=== PATIENT | male | born 1940 | race Caucasian/White ===

== ENCOUNTER 2024-03-08 15:24 | Emergency (ER) | payer MEDICARE ==
[2024-03-08] MEDS ORDERED: Sodium Chloride 0.9% 10 ML Syringe FLUSH PRN (15:45)
[2024-03-08] MEDS: Sodium Chloride 0.9% 1,000 ML IV ONE (15:59)
[2024-03-08] MEDS: Ondansetron 4 MG/2 ML SDV IVPUSH ONE (15:59)
[2024-03-08] MEDS ORDERED: Ondansetron 4 MG Tab.DIS ONE (16:00)
[2024-03-08] MEDS ORDERED: Pantoprazole 40 MG Tab.CR ONE (16:00)
[2024-03-08 16:18] LABS: BASOPHILS ABSOLUTE AUTO 0.04 K/uL (0.02-0.10); BASOPHILS PERCENT AUTO 0.4 % (0.0-0.5); EOSINOPHILS ABSOLUTE AUTO 0.01 K/uL (0.04-0.40); EOSINOPHILS PERCENT AUTO 0.1 % (1.0-5.0); HEMATOCRIT 39.8 % (40.0-54.0); LYMPHOCYTES PERCENT AUTO 11.2 % (20.0-40.0); MEAN CORPUSCULAR HEMOGLOBIN 30.1 pg (27.0-32.0); MEAN CORPUSCULAR HGB CONC 35.2 g/dL (31.0-35.0); MEAN CORPUSCULAR VOLUME 86 fL (76-96); MONOCYTES ABSOLUTE AUTO 0.72 K/uL (0.20-0.80); MONOCYTES PERCENT AUTO 7.3 % (3.0-10.0); NEUTROPHILS ABSOLUTE AUTO 7.99 K/uL (2.00-7.50); PLATELET COUNT,PLT 307 K/uL (150-400); RED BLOOD CELL COUNT 4.65 M/uL (4.50-6.50); WHITE BLOOD CELL COUNT,WBC 9.9 K/uL (4.0-11.0)
[2024-03-08] MEDS: GI Cocktail Oral Solution 30 ML PO ONE (16:25)
[2024-03-08 16:46] LABS: A/G RATIO 0.8 (0.8-2.0); ALBUMIN 3.7 g/dL (3.4-5.0); ANION GAP 15.7 mmol/L (5.0-15.0); BILIRUBIN TOTAL 0.9 mg/dL (0.0-1.0); BUN/CREATININE RATIO 14.6 (6-25); CALCIUM 9.7 mg/dL (8.5-10.1); CARBON DIOXIDE,CO2 28.3 mmol/L (21.0-32.0); CREATININE 1.57 mg/dL (0.70-1.30); EST CRCL DRUG DOSING (CG) 39.82 mL/min; PROTEIN TOTAL,TP 8.1 g/dL (6.4-8.2)
[2024-03-08] MEDS: Sodium Chloride 0.9% 50 ML SDV FLUSH SCH (16:50)
[2024-03-08] MEDS: Iopamidol 612 MG/ML 100 ML Bottle IV PRN (16:50)
[2024-03-08 17:02] LABS: APPEARANCE,URINE CLOUDY (CLEAR); COLOR,URINE YELLOW; PROTEIN,URINE 100 mg/dL (NEGATIVE)
[2024-03-08 17:03] LABS: BILIRUBIN,URINE SMALL (NEGATIVE); GLUCOSE,URINE NEGATIVE (NEGATIVE); KETONES,URINE 15 mg/dL (NEGATIVE); LEUKOCYTE ESTERASE,URINE NEGATIVE (NEGATIVE); NITRITE,URINE NEGATIVE (NEGATIVE); OCCULT BLOOD,URINE NEGATIVE (NEGATIVE); UROBILINOGEN,URINE 0.2 E.U./dL (0.2-1.0)
[2024-03-08 17:04] LABS: BACTERIA,URINE MANY /HPF; HYALINE CASTS,URINE OCCASIONAL /HPF; RBC,URINE 0-5 /HPF; SQUAMOUS EPITHELIAL CELLS,UR FEW /HPF
[2024-03-08 17:05] LABS: MUCUS,URINE MANY /HPF
[2024-03-08] MEDS: Sodium Chloride 0.9% 1,000 ML IV SCH (17:39)
[2024-03-08] MEDS: Pantoprazole 40 MG Vial IVPUSH ONE (18:29)
[2024-03-08] MEDS: Pantoprazole 40 MG Vial ONE (18:42)
[2024-03-08] MEDS: Ondansetron 4 MG Tab.DIS ONE (18:58)
== END 2024-03-08 18:47 | disposition home or self-care (01) ==
LOC: LB.ED 15:24
DX: K29.80 Duodenitis without bleeding (principal); Z79.84 Long term (current) use of oral hypoglycemic drugs; Z79.899 Other long term (current) drug therapy
CPT/HCPCS: 36415; 71260; 74177; 80053; 81001; 83605; 83690; 84484; 85025; 87086; 96361; 96374; 96375; 99284-25; A9270-GY; J2405; J2470; J3490; J7030; Q0162; Q9967